=== PATIENT | male | born 1995 | race Two or more races ===

== ENCOUNTER 2019-08-25 23:08 | Emergency (ER) | payer MEDICAID ==
[~2019-08-25] VITALS: Ht 177.8 cm; Wt 100.0 kg
[2019-08-26 00:52] VITALS: BP 130/79
== END 2019-08-26 00:48 | disposition home or self-care (01) ==
LOC: ER 23:08
DX: Z00.01 Encounter for general adult medical examination with abnormal findings (principal)
CPT/HCPCS: 99281